=== PATIENT | male | born 1985 | race Caucasian/White ===

== ENCOUNTER 2024-12-07 23:10 | Emergency (ER) | payer MEDICAID, SELFPAY ==
[2024-12-07 23:12] VITALS: BP 128/78; PULSE 103; RESP 16; TEMP 36.1; O2SAT 98; BMI 22.2
[2024-12-07 23:29] VITALS: BP 137/100; PULSE 106; O2SAT 99
[2024-12-07 23:30] VITALS: PULSE 97; O2SAT 99
--- NOTE | 2024-12-07 23:30 | ED.CHESTPAIN ---
HPI - Chest Pain General Date Seen: 12/07/24 <Stanley Miller MD - Last Filed: 12/07/24 23:40> Chief Complaint: Chest Pain <Stanley Miller MD - Last Filed: 12/07/24 23:40> Stated Complaint: chest burning <Stanley Miller MD - Last Filed: 12/07/24 23:40> Time Seen by Provider: 12/07/24 23:11 <Stanley Miller MD - Last Filed: 12/07/24 23:40> Source: patient, family, RN notes reviewed and old records reviewed <Stanley Miller MD - Last Filed: 12/07/24 23:40> Mode of arrival: ambulatory <Stanley Miller MD - Last Filed: 12/07/24 23:40> Limitations: no limitations <Stanley Miller MD - Last Filed: 12/07/24 23:40> History of Present Illness HPI narrative: Patient is a 31-year-old gentleman who presents here with chest pain and burning, it has been on off for few days. He describes it tonight after he went to bed, burning in his chest with maybe a little bit of radiation around to the right side. It does not go through to his back or up into his neck, not associated with coughing, it is not a pleuritic type pain. This comes and goes last for approximately 30 minutes to an hour then goes away. It has recurred multiple times over the past couple days. He does not get it when he exercises moves around her walks, usually when he is sitting down he finds activities tend to make it go way also. He has however been coughing more in the last few days. Denies a fevers chills associated with this he has no previous history of coronary disease. But he says his brother did have some sort of heart problem, but does not think it was stents or that. Cardiac risk factors: History of vaping/smoking, no history of diabetes hypertension or family history of heart disease. 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 Denies any leg swelling associated with this any history of DVTs or blood clots, no recent trips, Is however worried that he may have caught something from his cat , has a week and half ago he gave the cat CPR and [id number], and got a little bit of saliva in his mouth, the cat did not make it. His partner says that he thinks the cat of FIP. When I asked him with this acronym means neither them knew. Past history of a boxer's fracture on his right hand. History of meth use, history of anxiety, history of ADHD. Current medications include Seroquel of which she has not taken it for a month, and also buspirone <Stanley Miller MD - Last Filed: 12/07/24 23:40> MD complaint: chest pain and chest discomfort <Stanley Miller MD - Last Filed: 12/07/24 23:40> Onset (ago): day(s) <Stanley Miller MD - Last Filed: 12/07/24 23:40> Timing of current episode: episodic <Stanley Miller MD - Last Filed: 12/07/24 23:40> Prior episodes: Yes <Stanley Miller MD - Last Filed: 12/07/24 23:40> Onset: during rest <Stanley Miller MD - Last Filed: 12/07/24 23:40> Pain location: right chest, parasternal and lateral <Stanley Miller MD - Last Filed: 12/07/24 23:40> Pain radiation: none <Stanley Miller MD - Last Filed: 12/07/24 23:40> Severity: moderate <Stanley Miller MD - Last Filed: 12/07/24 23:40> Quality: tightness and burning <Stanley Miller MD - Last Filed: 12/07/24 23:40> Relieving factors: movement <Stanley Miller MD - Last Filed: 12/07/24 23:40> Context: other <Stanley Miller MD - Last Filed: 12/07/24 23:40> Treatment prior to arrival: none <Stanley Miller MD - Last Filed: 12/07/24 23:40> Risk Factors Coronary artery disease risk factors: none <Stanley Miller MD - Last Filed: 12/07/24 23:40> Thoracic aortic dissection risk factors: none <Stanley Miller MD - Last Filed: 12/07/24 23:40> Related Data Allergies/Adverse Reactions: Allergies Allergy/AdvReac Type Severity Reaction Status Date / Time No Known Drug Allergies Allergy Verified 12/07/24 23:18 <Stanley Miller MD - Last Filed: 12/07/24 23:40> Review of Systems Status of ROS Reports: 10 or more systems reviewed and unremarkable except as noted in History and below <Stanley Miller MD - Last Filed: 12/07/24 23:40> [facility] Social History: Social History Smoking Status: Light tobacco smoker What tobacco products do you use: cigarettes Do you use any of these nicotine containing products: Vaping Products Second hand tobacco smoke exposure: Yes Non-prescribed substance use: denies use service: No <Stanley Miller MD - Last Filed: 12/07/24 23:40> Exam Narrative Exam Narrative: On examination is very pressured speech in room 3. Nice oriented x3, pupils equal round reactive to light there is no scleral icterus redness TMs are normal oropharynx normal neck is supple full range of motion chest is good air entry bilaterally with no wheezing crackles noted, heart sounds no clicks murmurs or gallops no reproducible pain across his chest on palpation percussion. His abdomen is soft there is no guarding no organomegaly no tenderness. Bowel sounds are normal. Back is nontender. No tremors are noted, no rashes, normal power his upper lower extremities both proximally and distally is normal. <Stanley Miller MD - Last Filed: 12/07/24 23:40> Const Vital Signs, click to edit/add: Vital Signs - 24 hr 12/07/24 23:12 12/07/24 23:29 12/07/24 23:30 Temperature 97.0 F L Pulse Rate 106 H 97 Pulse Rate [Left Pulse Oximeter] 103 H Respiratory Rate 16 Blood Pressure 137/100 H Blood Pressure [Right Upper Arm] 128/78 Pulse Oximetry 98 99 99 Oxygen Delivery Method Room Air 12/07/24 23:31 12/07/24 23:45 12/07/24 23:58 Temperature Pulse Rate 101 H 96 97 Pulse Rate [Left Pulse Oximeter] Respiratory Rate 17 12 Blood Pressure 130/90 H 97/68 Blood Pressure [Right Upper Arm] Pulse Oximetry 100 100 98 Oxygen Delivery Method 12/08/24 00:00 12/08/24 00:01 12/08/24 00:02 Temperature Pulse Rate 87 85 84 Pulse Rate [Left Pulse Oximeter] Respiratory Rate 12 8 L 14 Blood Pressure 112/76 Blood Pressure [Right Upper Arm] Pulse Oximetry 98 98 93 Oxygen Delivery Method 12/08/24 00:15 Temperature Pulse Rate 94 Pulse Rate [Left Pulse Oximeter] Respiratory Rate 18 Blood Pressure Blood Pressure [Right Upper Arm] Pulse Oximetry 100 Oxygen Delivery Method <Stanley Miller MD - Last Filed: 12/07/24 23:40> Vital Signs - 24 hr 12/07/24 23:12 12/07/24 23:29 12/07/24 23:30 Temperature 97.0 F L Pulse Rate 106 H 97 Pulse Rate [Left Pulse Oximeter] 103 H Respiratory Rate 16 Blood Pressure 137/100 H Blood Pressure [Right Upper Arm] 128/78 Pulse Oximetry 98 99 99 Oxygen Delivery Method Room Air 12/07/24 23:31 12/07/24 23:45 12/07/24 23:58 Temperature Pulse Rate 101 H 96 97 Pulse Rate [Left Pulse Oximeter] Respiratory Rate 17 12 Blood Pressure 130/90 H 97/68 Blood Pressure [Right Upper Arm] Pulse Oximetry 100 100 98 Oxygen Delivery Method 12/08/24 00:00 12/08/24 00:01 12/08/24 00:02 Temperature Pulse Rate 87 85 84 Pulse Rate [Left Pulse Oximeter] Respiratory Rate 12 8 L 14 Blood Pressure 112/76 Blood Pressure [Right Upper Arm] Pulse Oximetry 98 98 93 Oxygen Delivery Method 12/08/24 00:15 Temperature Pulse Rate 94 Pulse Rate [Left Pulse Oximeter] Respiratory Rate 18 Blood Pressure Blood Pressure [Right Upper Arm] Pulse Oximetry 100 Oxygen Delivery Method <Shu Chin MD - Last Filed: 12/08/24 01:30> Documenting provider has reviewed patient's vital signs: yes <Stanley Miller MD - Last Filed: 12/07/24 23:40> Course Course ED Course: Will be signed out to the oncoming ER physician for further delineation. <Stanley Miller MD - Last Filed: 12/07/24 23:40> Reevaluation(s) Reevaluation #1: I was asked to follow-up in the workup for this patient. EKG showed sinus tachycardia, pulse 102, right axis deviation. His blood work was entirely normal including normal troponin. His urine drug screen was positive for opiates, and fed in means, methamphetamines. Patient states that he does actively do meth. He denies opiate use. He is wondering if perhaps the meth he was using was laced with something. I asked if he wanted any Narcan to take with him and he declines. Chest x-ray, read by me, does not show any acute pathology. Triple swab was negative. Given his history, presenting symptoms and workup I do not believe that his symptoms represent a life-threatening diagnosis including acute coronary syndrome, PE, pneumothorax, aortic dissection, pneumonia. Recommend at this time stopping methamphetamine use. Following up with his primary care provider will be important. <Shu Chin MD - Last Filed: 12/08/24 01:30> Vital Signs Vital signs: Initial Vital Signs Temperature 97.0 F L 12/07/24 23:12 Temperature Source Temporal Artery Scan 12/07/24 23:12 Pulse Rate 103 H 12/07/24 23:12 Pulse Rhythm Regular 12/07/24 23:12 Respiratory Rate 16 12/07/24 23:12 Blood Pressure 128/78 12/07/24 23:12 Blood Pressure Mean 94 12/07/24 23:12 Blood Pressure Position Sitting 12/07/24 23:12 Pulse Oximetry 98 12/07/24 23:12 Oxygen Delivery Method Room Air 12/07/24 23:12 Vital Signs Temperature 97.0 F L 12/07/24 23:12 Pulse Rate 103 H 12/07/24 23:12 Respiratory Rate 16 12/07/24 23:12 Blood Pressure 128/78 12/07/24 23:12 Pulse Oximetry 98 12/07/24 23:12 Oxygen Delivery Method Room Air 12/07/24 23:12 Temperature 97.0 F L 12/07/24 23:12 Pulse Rate 94 12/08/24 00:15 Respiratory Rate 18 12/08/24 00:15 Blood Pressure 112/76 12/08/24 00:01 Pulse Oximetry 100 12/08/24 00:15 Oxygen Delivery Method Room Air 12/07/24 23:12 <Stanley Miller MD - Last Filed: 12/07/24 23:40> Initial Vital Signs Temperature 97.0 F L 12/07/24 23:12 Temperature Source Temporal Artery Scan 12/07/24 23:12 Pulse Rate 103 H 12/07/24 23:12 Pulse Rhythm Regular 12/07/24 23:12 Respiratory Rate 16 12/07/24 23:12 Blood Pressure 128/78 12/07/24 23:12 Blood Pressure Mean 94 12/07/24 23:12 Blood Pressure Position Sitting 12/07/24 23:12 Pulse Oximetry 98 12/07/24 23:12 Oxygen Delivery Method Room Air 12/07/24 23:12 Vital Signs Temperature 97.0 F L 12/07/24 23:12 Pulse Rate 103 H 12/07/24 23:12 Respiratory Rate 16 12/07/24 23:12 Blood Pressure 128/78 12/07/24 23:12 Pulse Oximetry 98 12/07/24 23:12 Oxygen Delivery Method Room Air 12/07/24 23:12 Temperature 97.0 F L 12/07/24 23:12 Pulse Rate 94 12/08/24 00:15 Respiratory Rate 18 12/08/24 00:15 Blood Pressure 112/76 12/08/24 00:01 Pulse Oximetry 100 12/08/24 00:15 Oxygen Delivery Method Room Air 12/07/24 23:12 <Shu Chin MD - Last Filed: 12/08/24 01:30> Medications Administered Medications: Discontinued Medications Generic Name Dose Route Start Last Admin Trade Name Freq PRN Reason Stop Dose Admin Aspirin 324 mg 12/07/24 23:28 12/07/24 23:41 Aspirin 81 Mg Tab.Chew PO 12/07/24 23:29 324 mg ONCE ONE Administration Sodium Chloride 1,000 mls @ 1,000 mls/hr 12/07/24 23:30 12/08/24 00:49 0.9 % Sodium Chloride 1000 Ml IV 12/08/24 00:29 Infused .Q1H SVETLANA Infusion <Stanley Miller MD - Last Filed: 12/07/24 23:40> Discontinued Medications Generic Name Dose Route Start Last Admin Trade Name Freq PRN Reason Stop Dose Admin Aspirin 324 mg 12/07/24 23:28 12/07/24 23:41 Aspirin 81 Mg Tab.Chew PO 12/07/24 23:29 324 mg ONCE ONE Administration Sodium Chloride 1,000 mls @ 1,000 mls/hr 12/07/24 23:30 12/08/24 00:49 0.9 % Sodium Chloride 1000 Ml IV 12/08/24 00:29 Infused .Q1H SVETLANA Infusion <Shu Chin MD - Last Filed: 12/08/24 01:30> MDM - Chest Pain MDM Narrative Medical decision making narrative: During the evaluation of this patient I considered multiple differential diagnosis is. The life-threatening differential diagnosis include coronary disease/CT, pulmonary embolism, pneumothorax, pneumonia, and aortic dissection. Other differential diagnosis included but were not limited to pericarditis, myocarditis, chest wall pain, GERD, esophageal rupture, rib fracture contusion, pleurisy, as well as other etiologies. Given the story I think it would be reasonable to do a workup cardiac here. We will give him some aspirin do a chest x-ray, EKG. This does seem to be more likely atypical chest pain. <Stanley Miller MD - Last Filed: 12/07/24 23:40> Medical Records Data Attestation: I reviewed the patient's medical records. <Stanley Miller MD - Last Filed: 12/07/24 23:40> Lab Data Attestation: I reviewed the patient's lab results. <Shu Chin MD - Last Filed: 12/08/24 01:30> Labs: Lab Results 12/07/24 12/07/24 12/07/24 Range/Units 00:22 23:29 23:50 WBC 7.31 (4.50-11.00) K/uL RBC 5.16 (4.30-5.90) m/uL Hgb 14.6 (13.5-17.5) gm/dL Hct 44.1 (37.0-53.0) % MCV 86 (80-100) fL MCH 28 (26-34) pg MCHC 33 (32-36) gm/dL RDW Coeff of Chelsey 13.3 (11.5-15.5) % Plt Count 277 (140-440) K/uL Neut % (Auto) 70.0 (42.0-72.0) % Lymph % (Auto) 17.5 L (20-44) % Banner % (Auto) 10.9 (0.0-11.0) % Eos % (Auto) 1.0 (0.0-7.0) % Baso % (Auto) 0.5 (0.0-3.0) % Neut # (Auto) 5.11 (1.7-7.0) K/uL Lymph # (Auto) 1.30 (0.90-2.90) K/uL Banner # (Auto) 0.80 (0.00-0.90) K/UL Eos # (Auto) 0.07 (0.00-0.50) K/uL Baso # (Auto) 0.04 (0.00-0.30) K/uL Abs Immat Gran (auto) 0.01 (0.00-0.30) K/uL Imm/Tot Granulo (auto) 0.1 % APTT 27 (23-33) Seconds D-Dimer Quant (PE/DVT) < 0.27 (0.00-0.50) ug/ml Sodium 141 (135-149) mmol/L Potassium 4.0 (3.6-5.1) mmol/L Chloride 105 (96-114) mmol/L Carbon Dioxide 29 (20-32) mmol/L Anion Gap 7 (7-15) mEq/L BUN 13 (5-24) mg/dL Creatinine 1.1 (0.5-1.5) mg/dL Estimated Creat Clear 87.63 Estimated GFR 88 ml/min Glucose 92 (60-115) mg/dL Calcium 9.2 (8.4-10.6) mg/dL NT-Pro-B Natriuret Pep < 20 pg/mL Urine Opiates Screen POSITIVE A (Negative) Ur Oxycodone Screen Negative (Negative) Urine Methadone Screen Negative (Negative) Ur Barbiturates Screen Negative (Negative) U Tricyclic Antidepress Negative (Negative) Ur Phencyclidine Scrn Negative (Negative) Ur Amphetamines Screen POSITIVE A (Negative) U Methamphetamines Scrn POSITIVE A (Negative) U Benzodiazepines Scrn Negative (Negative) Urine Cocaine Screen Negative (Negative) U Marijuana (THC) Screen Negative (Negative) Ur Drug Screen Comment See Note SARS-CoV-2 (PCR) Negative SARS-CoV-2 (Negative) Influenza Type A (PCR) Negative PCR FLU A (Negative) Influenza Type B (PCR) Negative PCR FLU B (Negative) RSV (PCR) Negative PCR RSV (Negative) POC Troponin I 0.00 L (0.01-0.04) ng/ml <Stanley Miller MD - Last Filed: 12/07/24 23:40> Lab Results 12/07/24 12/07/24 12/07/24 Range/Units 00:22 23:29 23:50 WBC 7.31 (4.50-11.00) K/uL RBC 5.16 (4.30-5.90) m/uL Hgb 14.6 (13.5-17.5) gm/dL Hct 44.1 (37.0-53.0) % MCV 86 (80-100) fL MCH 28 (26-34) pg MCHC 33 (32-36) gm/dL RDW Coeff of Chelsey 13.3 (11.5-15.5) % Plt Count 277 (140-440) K/uL Neut % (Auto) 70.0 (42.0-72.0) % Lymph % (Auto) 17.5 L (20-44) % Banner % (Auto) 10.9 (0.0-11.0) % Eos % (Auto) 1.0 (0.0-7.0) % Baso % (Auto) 0.5 (0.0-3.0) % Neut # (Auto) 5.11 (1.7-7.0) K/uL Lymph # (Auto) 1.30 (0.90-2.90) K/uL Banner # (Auto) 0.80 (0.00-0.90) K/UL Eos # (Auto) 0.07 (0.00-0.50) K/uL Baso # (Auto) 0.04 (0.00-0.30) K/uL Abs Immat Gran (auto) 0.01 (0.00-0.30) K/uL Imm/Tot Granulo (auto) 0.1 % APTT 27 (23-33) Seconds D-Dimer Quant (PE/DVT) < 0.27 (0.00-0.50) ug/ml Sodium 141 (135-149) mmol/L Potassium 4.0 (3.6-5.1) mmol/L Chloride 105 (96-114) mmol/L Carbon Dioxide 29 (20-32) mmol/L Anion Gap 7 (7-15) mEq/L BUN 13 (5-24) mg/dL Creatinine 1.1 (0.5-1.5) mg/dL Estimated Creat Clear 87.63 Estimated GFR 88 ml/min Glucose 92 (60-115) mg/dL Calcium 9.2 (8.4-10.6) mg/dL NT-Pro-B Natriuret Pep < 20 pg/mL Urine Opiates Screen POSITIVE A (Negative) Ur Oxycodone Screen Negative (Negative) Urine Methadone Screen Negative (Negative) Ur Barbiturates Screen Negative (Negative) U Tricyclic Antidepress Negative (Negative) Ur Phencyclidine Scrn Negative (Negative) Ur Amphetamines Screen POSITIVE A (Negative) U Methamphetamines Scrn POSITIVE A (Negative) U Benzodiazepines Scrn Negative (Negative) Urine Cocaine Screen Negative (Negative) U Marijuana (THC) Screen Negative (Negative) Ur Drug Screen Comment See Note SARS-CoV-2 (PCR) Negative SARS-CoV-2 (Negative) Influenza Type A (PCR) Negative PCR FLU A (Negative) Influenza Type B (PCR) Negative PCR FLU B (Negative) RSV (PCR) Negative PCR RSV (Negative) POC Troponin I 0.00 L (0.01-0.04) ng/ml <Shu Chin MD - Last Filed: 12/08/24 01:30> Imaging Data Chest x-ray: Attestation: I have reviewed the pertinent imaging results. <Shu Chin MD - Last Filed: 12/08/24 01:30> Radiologist's impression: TECHNIQUE: Chest 2 views. COMPARISON: July 22, 2021. FINDINGS: Cardiovascular and mediastinum: Heart size and vasculature are normal in caliber and appearance. Lungs and pleural spaces: Lungs are clear. No sign of infiltrate or mass. No sign of pleural effusion. No pneumothorax. Bones and soft tissues: No significant findings. IMPRESSION: No acute or significant findings. <Shu Chin MD - Last Filed: 12/08/24 01:30> ECG Data Attestation: I personally reviewed and interpreted this ECG as follows: <Stanley Miller MD - Last Filed: 12/07/24 23:40> ECG interpretation date: 12/07/24 <Stanley Miller MD - Last Filed: 12/07/24 23:40> Prior ECG tracings: not available for review <Stanley Miller MD - Last Filed: 12/07/24 23:40> Interpretation: EKG shows mild sinus tachycardia [address] wave elevation or depression is noted. QRS is normal, QT is normal, QTC is 453. Assessment: Mild sinus tachycardia, no acute changes. <Stanley Miller MD - Last Filed: 12/07/24 23:40> Discharge Plan Discharge Clinical Impression: Atypical chest pain <Stanley Miller MD - Last Filed: 12/07/24 23:40> Patient Disposition: Home, Self-Care <Stanley Miller MD - Last Filed: 12/07/24 23:40> Condition: Stable <Stanley Miller MD - Last Filed: 12/07/24 23:40> Additional Instructions: Your workup today did not reveal any life-threatening causes of your chest pain. Urine drug screen was positive for amphetamines and opiates. Drug use can certainly cause chest pain. Recommend stopping use of recreational drugs. I do recommend you follow-up with your primary care provider to discuss your symptoms and next steps. <Stanley Miller MD - Last Filed: 12/07/24 23:40> Follow Up/Referrals: Provider,Not a Local [Primary Care Provider] - <Stanley Miller MD - Last Filed: 12/07/24 23:40> Stand Alone Forms: [facility] <Stanley Miller MD - Last Filed: 12/07/24 23:40>
[2024-12-07 23:31] VITALS: BP 130/90; PULSE 101; O2SAT 100
[2024-12-07] MEDS: ASPIRIN 81 MG TAB.CHEW 324 MG PO (23:41)
[2024-12-07 23:45] VITALS: PULSE 96; RESP 17; O2SAT 100
[2024-12-07] MEDS: 0.9 % SODIUM CHLORIDE 1000 ml 1,000 ML IV (23:53)
[2024-12-07 23:58] VITALS: BP 97/68; PULSE 97; RESP 12; O2SAT 98
[2024-12-08] VITALS (9 sets, daily range): BP systolic 112–114; BP diastolic 76–82; PULSE 84–100; RESP 8–21; O2SAT 93–100
[2024-12-08 00:08] LABS: Basophils Absolute Auto 0.04 K/uL (0.00-0.30); Basophils Percent Auto 0.5 % (0.0-3.0); Eosinophils Absolute Auto 0.07 K/uL (0.00-0.50); Hematocrit 44.1 % (37.0-53.0); Hemoglobin* 14.6 gm/dL (13.5-17.5); Immature Granulocytes Abs Auto 0.01 K/uL (0.00-0.30); Immature Granulocytes Pct Auto 0.1 %; Lymphocytes Percent Auto 17.5 % (20-44); Mean Corpuscular HGB Conc 33 gm/dL (32-36); Mean Corpuscular Hemoglobin 28 pg (26-34); Mean Corpuscular Volume 86 fL (80-100); Monocytes Percent Auto 10.9 % (0.0-11.0); Neutrophils Absolute Auto 5.11 K/uL (1.7-7.0); Platelet Count* 277 K/uL (140-440); RDW Coefficient of Variation % 13.3 % (11.5-15.5); Red Blood Count 5.16 m/uL (4.30-5.90); White Blood Count* 7.31 K/uL (4.50-11.00)
[2024-12-08 00:10] LABS: Slide Review Reflex No
--- OUTSIDE RECORDS SUMMARY | 2024-12-08 00:23 | XMS_ITS | Clinical Summary ---
Author Organization [facility] Address [address] [place] [id number] Care Team Providers Care Shrimp Trawler Name Role Phone Clinic, No Pcp Or Primary Care Provider Unavaila ble Allergies No known active allergies Medications QUEtiapine 50 mg tablet Take 50 mg by mouth at bedtime. 07/23/20 24 Active buPROPion 150 mg Extended-Releas e tabletIndicatio ns:Lack of motivation,NORAH (generalized anxiety disorder) Take 1 Tablet (150 mg) by mouth once daily in the morning. 30 Tablet 1 12/01/19 25 Active ibuprofen (ADVIL; MOTRIN) 800 mg tabletIndicatio ns:Closed fracture of unspecified phalanx or phalanges of hand Take 1 tablet by mouth 3 times daily with meals. 90 tablet 0 02/24/20 10 025 Discontin ued(*Randi ent states no longer taking) hydrocodone-judith taminophen, 5-500 mg, (VICODIN) Tab tabletIndicatio ns:Closed fracture of unspecified phalanx or phalanges of hand Take 1 tablet by mouth every 6 hours if needed for Pain. Max acetaminophen dose: 4000mg in 24 hrs. 20 tablet 0 03/03/20 10 025 Discontin ued(*Med complete/ Regimen complete/ Level of care change) oxyCODONE (ROXICODONE) 5 mg immediate release tabletIndicatio ns:Corneal abrasion, left, initial encounter Take 1-2 tablets by mouth every 4 hours if needed for Pain 15 tablet 02/17/20 17 025 Discontin ued(*Med complete/ Regimen complete/ Level of care change) atomoxetine 40 mg capsule Take 1 Capsule by mouth once daily. 08/21/20 24 025 Discontin ued(*Randi ent states no longer taking) Active Problems No known active problems Resolved Problems Problem Noted Date Diagnosed Date Resolved Date Closed fracture of unspecifi ed phalanx or phalange 02/23/2010 11/30/2024 Overview (02/23/2010): 4th and 5th MCP Encounters Date Type Department Care Team Description 12/07/2024 Telephone [facility] [id number] [place] [id number] Latanya Stafford PA Questions 12/03/[address] [address] Clinic, No Pcp Or Results 11/30/2024 3:00 PM CDT Office Visit [address] [id number] Latanya Stafford PA Physical (not fasting) 11/30/2024 Travel from Last 3 Months Immunizations Immunization Administration Dates Next Due Tdap 10/04/2017,03/06/2007 Family History Medical History Relation Name Comments Alcoholism Father Cancer Mother eye Hypertension Mother Thyroid Disease Mother Relation Name Status Comments Brother 1 Alive Brother 2 Alive Father Mother Alive Social History Tobacco Use Types Packs/Day Years Used Date Smoking Tobacco: Some Days Cigarettes 0 15.3 Started: 2009 Tobacco Cessation:Ready to Q uit: Not Asked; Counseling Given: Not Answered Comments:few puff of a cigarette does not do a whole cigarette Alcohol Use Standard Drinks/Week Comments Not Currently 0 (1 standard drink = 0.6 oz pur e alcohol) occasional PHQ-2 Answer Date Recorded PHQ-2 TOTAL SCORE 1 11/30/2024 Social Connections Answer Date Recorded Do you often feel lonely or isolated from those around you? 0 11/30/2024 Financial Resource Strain Answer Date R ecorded Difficulty of Paying Living Expenses 3 11/30/2024 Difficulty of Paying Living Expenses Not on file 11/30/2024 Food Insecurity Answer Date Recorded Do you worry your food will run out before you are able to buy more? 1 11/30/2024 Transportation Needs Answer Date Record ed Does lack of transportation keep you from medica l appointments? 1 11/30/2024 Does lack of transportation keep you from work, meetings or getting things that you need? 1 11/30/2024 Housing Stability Answer Date Recorded What is your housing situation today? 1 11/30/2024 Utilities Answer Date Recorded Do you have trouble paying f or utilities (for example, heat, electricity, water, phone)? 1 11/30/2024 Sex and Gender Information Value Date Recorded Sex Assigned at Not on file Legal Sex Male 5:26 AM [employer]AMP CLASS[employer] Gender Identity Not on file Sexual Orientation Not on file Obstetrics History Last Filed Vital Signs Vital Sign Reading Time Taken Comments Blood Pressure 112/70 11/30/2024 2:56 PM CDT Pulse 99 11/30/2024 2:56 PM CDT Temperature 36.7 C (98 F) 02/16/2017 7:01 PM CDT Respiratory Rate 16 02/16/2017 7:01 PM CDT Oxygen Saturation 98% 11/30/2024 2:56 PM CDT Inhaled Oxygen Concentration - - Weight 70 kg (154 lb 6.4 oz) 11/30/2024 2:56 PM CDT Height 177.5 cm (5' 9.88) 11/30/2024 2:56 PM CD T Body Mass Index 22.23 11/30/2024 2:56 PM CDT Plan of Treatment Health Maintenance Due Date Last Done Comments Pneumococcal series for age 6-49 (1 of 2 - PCV) 2005 COVID-19 vaccine series ( season) 2024 Influenza Vaccine (Season Ended) 2025 BMI (ht and wt on same day) for age 18+ 11/30/2025 0 11/30/2024 Depression screening for age 12+ 12/03/2025 12/04/19 25, 11/30/2024 Tetanus booster 10/04/2027 10/04/2017, 03/06/2007 Lipids for age 35-44 11/30/2029 11/30/2024 Tdap Completed 10/04/2017, 03/06/2007 HIV for age 15-65 Completed 11/30/2024 Hepatitis C screening for age 18-79 Completed 11/30 Procedures Procedure Name Priority Date/Time Associated Diagnosis Comments GC CHLAMYDIA TRACH PROBE Routine 11/30/2024 4:04 PM CDT Screening for STD (sexually transmitted disease) HEMOGLOBIN A1C Routine 11/30/2024 3:50 PM CDT NORAH (generalized anxiety disorder) Screening for diabetes mellitus COMP METABOLIC PANEL Routine 11/30/2024 3:50 PM CDT Screening for diabetes mellitus LIPID PANEL W REFLEX MEASURED LDL Routine 11/30/2024 3:50 PM CDT Screening for hyperlipidemia TSH WITH REFLEX Routine 11/30/2024 3:50 PM CDT Lack of motivation NORAH (generalized anxiety disorder) ANTI HIV 1/2 Routine 11/30/2024 3:50 PM CDT Screening for HIV (human immunodeficiency virus) ANTI HCV Routine 11/30/2024 3:50 PM CDT Need for hepatitis C screening test TREPONEMA PALLIDUM Routine 11/30/2024 3: 49 PM CDT Screening for STD (sexually transmitted disease) from Last 3 Months Results * GC & CHLAMYDIA DNA PCR [[id number]] (11/30/2024 4:04 PM CDT) CHLAMYDIA PROBE Negative 3:17 AM CDT [facility] N GONORRHOEAE PROBE Negative 12/01/2024 3:17 AM CDT [facility] Other URINE SPECIMEN / Unknown [facility] / Unknown 11/30/2024 4:04 PM CDT 11/30/2024 4:05 PM CDT us Latanya HEBERT MICROBIOLOGY Final Result [facility] [address] [place] [address], * HEMOGLOBIN A1C (11/30/2024 3:50 PM CDT) HEMOGLOBIN A1C 5.6 <5.7 % of total Hgb [facility] Comment: For the purpose of screening for the presence of diabetes: <5.7% Consistent with the absence of diabetes 5.7-6.4% Consistent with increased risk for diabetes (prediabetes) > or =6.5% Consistent with diabetes This assay result is consistent with a decreased risk of diabetes. Currently, no consensus exists regarding use of hemoglobin A1c for diagnosis of diabetes in children. According to [place] Diabetes Association (ADA) guidelines, hemoglobin A1c <7.0% represents optimal control in non- diabetic patients. Different metrics may apply to specific patient populations. Standards of Medical Care in Diabetes(ADA). Blood BLOOD SPECIMEN / Unknown 11/30/2024 3:50 PM CDT 11/30/2024 3:51 PM CDT Latanya HEBERT CHEMISTRY Final Result Performing Organization Address City/[facility]/ZIP Co de Phone Number [email or web address] [address] [place] [address], [facility] [address] [place] [address] * TSH WITH REFLEX (11/30/2024 3:50 PM CDT) Pathologist [facility] [place] TSH W/REFLEX TO FT4 1.09 0.40 - 4.50 mIU/L [facility] Blood BLOOD SPECIMEN / Unknown 11/30/2024 3:50 PM CDT 11/30/2024 3:51 PM CDT us Latanya HEBERT CHEMISTRY Final Result [facility] [address] [place] [address], [place] [phone] [facility] [address] [facility] [place] [address] * LIPID PANEL W REFLEX MEASURED LDL (11/30/2024 3:50 PM CDT) Pathologist [facility] [place] CHOLESTEROL, TOTAL 177 <200 mg/dL [facility] HDL CHOLESTEROL 55 > OR = 40 mg/dL [facility] TRIGLYCERIDES 148 <150 mg/dL [facility] LDL-CHOLESTEROL 97 mg/dL (calc) [facility] Comment: Reference range: <100 Desirable range <100 mg/dL for primary prevention; <70 mg/dL for patients with CHD or diabetic patients with > or = 2 CHD risk factors. LDL-C is now calculated using the David calculation, which is a validated novel method providing better accuracy than the Friedewald equation in the estimation of LDL-C. Tho SS et al. MINA. 2013;310(33): 3968-9269 (http://education.PropelAd.com/faq/TMV811) CHOL/HDLC RATIO 3.2 <5.0 (calc) [facility] NON HDL CHOLESTEROL 122 <130 mg/dL (calc) [facility] Comment: For patients with diabetes plus 1 major ASCVD risk factor, treating to a non-HDL-C goal of <100 mg/dL (LDL-C of <70 mg/dL) is considered a therapeutic option. Blood BLOOD SPECIMEN / Unknown 11/30/2024 3:50 PM CDT 11/30/2024 3:51 PM CDT Latanya HEBERT CHEMISTRY Final Result [email or web address] [address] [place] [address], [facility] [address] [place] [address] * ANTI HCV (11/30/2024 3:50 PM CDT) Pathologist [facility] [place] HEPATITIS C ANTIBODY NON-REACTI VE NON-REACT ALINA [facility] Comment: HCV antibody was non-reactive. There is no laboratory evidence of HCV infection. In most cases, no further action is required. However, if recent HCV exposure is suspected, a test for HCV RNA (test code 70243) is suggested. For additional information please refer to http://PathDrugomics.Helpr/faq/ZWW55u9 (This link is being provided for informational/ educational purposes only.) Blood BLOOD SPECIMEN / Unknown 11/30/2024 3:50 PM CDT 11/30/2024 3:51 PM CDT Latanya HEBERT SEND OUTS Final Result Performing Organization Address [facility] de Phone Number [email or web address] [address] [place] [address], [facility] [address] [place] [phone] * ANTI HIV 1/2 [50163.0] (11/30/2024 3:50 PM CDT) [facility] HIV AG/AB, 4TH GEN NON-REACT ALINA NON-REACT ALINA [facility] Comment: HIV-1 antigen and HIV-1/HIV-2 antibodies were not detected. There is no laboratory evidence of HIV infection. PLEASE NOTE: This information has been disclosed to you from records whose confidentiality may be protected by state law. If your state requires such protection, then the state law prohibits you from making any further disclosure of the information without the specific written consent of the person to whom it pertains, or as otherwise permitted by law. A general authorization for the release of medical or other information is NOT sufficient for this purpose. For additional information please refer to http://PathDrugomics.Helpr/faq/XFT799 (This link is being provided for informational/ educational purposes only.) The performance of this assay has not been clinically validated in patients less than 2 years old. Blood BLOOD SPECIMEN / Unknown 11/30/2024 3:50 PM CDT 11/30/2024 3:51 PM CDT us Latanya HEBERT SEND OUTS Final Result Performing Organization Address [facility] Co de Phone Number [email or web address] [address] [place] [address], [facility] [address] [place] [address] * COMP METABOLIC PANEL (11/30/2024 3:50 PM CDT) [facility] GLUCOSE 97 65 - 99 mg/dL [facility] Comment: Fasting reference interval UREA NITROGEN (BUN) 14 7 - 25 mg/dL [facility] CREATININE 1.06 0.60 - 1.26 mg/dL [facility] EGFR 92 > OR = 60 mL/min/1. 73m2 [facility] BUN/CREATININE RATIO SEE NOTE: (calc) [facility] Comment: Not Reported: BUN and Creatinine are within reference range. SODIUM 140 135 - 146 mmol/L [facility] POTASSIUM 4.3 3.5 - 5.3 mmol/L [facility] CHLORIDE 105 98 - 110 mmol/L [facility] CARBON DIOXIDE 30 20 - 32 mmol/L [facility] CALCIUM 9.4 8.6 - 10.3 mg/dL [facility] PROTEIN, TOTAL 6.8 6.1 - 8.1 g/dL [facility] ALBUMIN 4.1 3.6 - 5.1 g/dL [facility] GLOBULIN 2.7 1.9 - 3.7 g/dL (calc) [facility] ALBUMIN/GLOBULIN RATIO 1.5 1.0 - 2.5 (calc) [facility] BILIRUBIN, TOTAL 0.3 0.2 - 1.2 mg/dL [facility] ALKALINE PHOSPHATASE 73 36 - 130 U/L [facility] AST 14 10 - 40 U/L [facility] ALT 13 9 - 46 U/L [facility] Blood BLOOD SPECIMEN / Unknown 11/30/2024 3:50 PM CDT 11/30/2024 3:51 PM CDT Latanya HEBERT CHEMISTRY Final Result [facility] [address] [place] [address], [place] [phone] [facility] [address] [place] [address] * TREPONEMA PALLIDUM (11/30/2024 3:49 PM CDT) TREPONEMA PALLIDUM Non-Reacti ve Non-Reacti ve 11/30/2024 11:00 PM CDT [facility] Blood BLOOD SPECIMEN / Unknown [facility] / Unknown 11/30/2024 3:49 PM CDT 11/30/2024 3:49 PM CDT Latanya HEBERT SEND OUTS Final Result [facility] [address] [place] [address], from Last 3 Months Insurance [facility] Care Teams Shrimp Trawler Relationship Specialty Start Date End Date Clinic, No Pcp Or . PCP - General 02/16/17
[2024-12-08 00:30] LABS: Partial Thromboplastin Time* 27 Seconds (23-33)
[2024-12-08 00:40] LABS: Chloride* 105 mmol/L (96-114); Sodium* 141 mmol/L (135-149)
[2024-12-08 00:43] LABS: Anion Gap 7 mEq/L (7-15); Blood Urea Nitrogen* 13 mg/dL (5-24); Calcium* 9.2 mg/dL (8.4-10.6); Carbon Dioxide* 29 mmol/L (20-32); Creatinine* 1.1 mg/dL (0.5-1.5); D Dimer Quantitative* < 0.27 ug/ml (0.00-0.50); Est. Creatinine Clearance* 87.63; Estimated Glomerular Filt Rate 88 ml/min; Glucose* 92 mg/dL (60-115)
[2024-12-08 00:44] LABS: PCR FLU A Negative PCR FLU A (Negative); PCR FLU B Negative PCR FLU B (Negative); PCR RSV Negative PCR RSV (Negative); SARS PCR* Negative SARS-CoV-2 (Negative)
[2024-12-08 00:45] LABS: Amphetamine Screen Urine POSITIVE (Negative); Barbiturate Screen Urine Negative (Negative); Benzodiazepines Screen Urine Negative (Negative); Cannabinoid Screen Urine Negative (Negative); Cocaine Screen Urine Negative (Negative); Methadone Screen Urine Negative (Negative); Methamphetamines Screen Urine POSITIVE (Negative); Opiate Screen Urine POSITIVE (Negative); Oxycodone Screen Urine Negative (Negative); Phencyclidine Screen Urine Negative (Negative); Tricyclic Antidepressant Urine Negative (Negative)
[2024-12-08 00:55] LABS: NT Pro B Type NatriureticPept* < 20 pg/mL
--- NOTE | 2024-12-08 01:00 | CRLHL7_ITS ---
For Patients: As a result of the Century Cures Act, medical imaging exams and procedure reports are released immediately into your electronic medical record. You may view this report before your referring provider. If you have questions, please contact your health care provider. INDICATION: Chest pain. TECHNIQUE: Chest 2 views. COMPARISON: July 22, 2021. FINDINGS: Cardiovascular and mediastinum: Heart size and vasculature are normal in caliber and appearance. Lungs and pleural spaces: Lungs are clear. No sign of infiltrate or mass. No sign of pleural effusion. No pneumothorax. Bones and soft tissues: No significant findings. IMPRESSION: No acute or significant findings. Dictated by Nilson Eric MD @ 12/08/2024 1:17:02 AM (Electronically Signed)
== END 2024-12-08 01:35 | disposition home or self-care (01) ==
PROVIDERS: Family Medicine; Emergency Provider Family Medicine
DX: R07.9 Chest pain, unspecified (principal)
CPT/HCPCS: 36415; 71046; 80048; 80306; 83880; 84484; 85025; 85379; 85730; 87631; 99284; A9270; J7030